=== PATIENT | male | born 1965 | race Caucasian/White ===

== ENCOUNTER 2025-10-19 05:34 | Day surgery (SDC) | payer BC ==
[2025-10-15 11:34] VITALS: BMI 24.9
[2025-10-19 06:54] LABS: #Basophils 0.05 10x3/uL (0.0-0.2); #Eosinophils 0.35 10x3/uL (0.0-0.5); #Monocytes 1.90 10x3/uL (0.0-1.1); #Neutrophils 11.85 10x3/uL (1.5-8.4); %Basophils 0.3 % (0.0-2.0); %Eosinophils 2.2 % (0.0-6.0); %Lymphocytes 9.0 % (18.0-47.0); %Monocytes 12.2 % (0.0-10.0); %Neutrophils 76.0 % (40.0-75.0); Hematocrit 35.4 % (38.8-50.0); Hemoglobin 11.2 g/dL (13.5-17.5); Mean Corpuscular Hemoglobin 27.7 pg (27.0-33.0); Mean Corpuscular Volume 87.4 fL (81.2-95.1); Platelet Count 453 10x3/uL (150-450); Red Blood Cell (RBC) Count 4.05 10x6/uL (4.32-5.72); White Blood Cell (WBC) Count 15.60 10x3/uL (3.5-10.5)
[2025-10-19] MEDS ORDERED: PROPOFOL 20 ML ONE (07:28)
[2025-10-19] MEDS ORDERED: Bupivacaine HCl 0.5%/Epinephrine 1:200,000/PF 30 ml Vial ONE (07:43)
[2025-10-19] MEDS ORDERED: CEFAZOLIN 2 GM VIAL ONE (08:02)
== END 2025-10-19 10:10 | disposition home or self-care (01) ==
LOC: CSHSDC 05:34
PROVIDERS: ATTEND Surgery
PROC: 05HM03Z Insertion of Infusion Device into Right Internal Jugular Vein, Open Approach (ICD-10-PCS; principal; 2025-10-19)
DX: C15.3 Malignant neoplasm of upper third of esophagus (principal); F17.290 Nicotine dependence, other tobacco product, uncomplicated
CPT/HCPCS: 36415; 71045; 85025; 93005; 93010; C1788; J1100; J1642; J2704